=== PATIENT | female | born 1935 | race Caucasian/White ===

== ENCOUNTER → 2017-01-13 | Outpatient (CLI) | payer MEDICARE ==
[~2017-01-13] MED LIST: ALLEGRA PO; AMITRIPTYLINE H25 MG PO; AMLODIPINE BESYL5 MG PO; ANTIVERT PO; ASPIRIN PO; BRILINTA90 MG PO; BRINTELLIX20 MG PO; CRESTOR10 MG PO; ESTRACE42.5 GM VG; FIORINAL CAPSUL1 CAP PO; FLEXERIL10 MG PO; IBUPROFEN800 MG PO; KEPPRA750 MG PO; LOMOTIL TABLET1 TAB PO; MEDI-MECLIZINE25 M1 PO; MEDROL PO; NEXIUM PO; NORCO 10/325 TA1 TAB PO; OXYCONTIN PO; PIOGLITAZONE30 MG PO; PLAVIX PO; PROZAC PO; SKELAXIN PO; SYNTHROID PO; VICODIN 5/500 T1 TAB PO; ZOFRAN ODT4 MG PO
--- NOTE | ~2017-01-13 | MY11 ---
[facility] A Service [facility] RADIOLOGY TEXT RESULTS PATIENT: DESIREE NGO LOCATION: [facility] : 39 UNIT #: [id number] AGE: [address]: Edmund Souza MD SEX: F ORDER DR: [id number] [address] [id number] O MR#: [id number] Acc #: [id number] NAME: DESIREE NGO : 1935 SEX: F STUDY DATE/TIME: 01/13/2017 13:11 UNIT: [facility] ROOM: STUDY DESCRIPTION: MY Mammogram Screening Dig Lonnie Attending Physician: Edmund Souza M.D. Referring Physician: Edmund Souza M.D. Ordering Physician: Edmund Souza M.D. Primary Care Physician: Edmund Souza M.D. MEDICAL IMAGING REPORT This report is preliminary unless electronic signature is present. EXAM Digital screening mammogram 01/13/2017 [facility] HISTORY 81-year-old woman, positive family history, sister and niece and brother. Prior bilateral excisional breast biopsies. Annual screen COMPARISON 06/17/2013, 06/30/2014, 09/14/2015 FINDINGS Digital imaging of each breast was completed utilizing a two-view examination of each breast in craniocaudal and mediolateral-oblique projections. Review and interpretation of digital mammograms include a second review in conjunction with FDA-approved CAD device. There is a normal parenchymal presentation bilaterally consistent with the patient's age. There are no breast masses imaged and no parenchymal asymmetry is visualized. There are no suspicious microcalcifications and I see no focal architectural disturbance. IMPRESSION Negative screening digital mammogram. One-year followup recommended. Patients over the age of 40 are entered into a reminder system with target due date for the next mammogram. A result letter will also be sent to the patient. BIRADS: 1 Negative Dictated by... [facility] Service of [facility] RADIOLOGY TEXT RESULTS PATIENT: DESIREE NGO LOCATION: [facility] : 39 UNIT #: [id number] AGE: [address]: Edmund Souza MD SEX: F ORDER DR: Serafin Rahman M.D. THIS IS AN ELECTRONICALLY VERIFIED REPORT Serafin Rahman M.D. at 01/14/2017 8:03 AM JBB/chloé TD: 01/13/2017 19:53 JOB #: [id number] MEDICAL IMAGING REPORT Page 1 of 1
== END | disposition home or self-care (01) ==
LOC: SMAM 12:31
DX: Z12.31 Encounter for screening mammogram for malignant neoplasm of breast (principal); Z80.3 Family history of malignant neoplasm of breast; Z98.890 Other specified postprocedural states
CPT/HCPCS: G0202